=== PATIENT | male | born 1955 | race Caucasian/White ===

== ENCOUNTER 2025-06-27 13:55 | Inpatient (IN) | payer MEDICARE, MEDICAID ==
[~2025-06-27] VITALS: Ht 182.9 cm; Wt 74.6 kg
[~2025-06-27 13:55] MED LIST: AML5T PO; CLON0.1T PO; GEM600T PO; LOS50T PO; METO-159 PO; NAPR-746 PO; NOR10T PO; POT20T PO; QUET100T47 PO; SERT-160 PO
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
--- NOTE | 2025-06-27 15:12 | ECG ---
[facility] Test Date: 2025-06-27 Test Time: 15:10:46 Pat Name: CHRIS LOPEZ Department: Room: 0278T Gender: M Retail Support Manager: GP : 1955 Requested By: HANSEL GARNER Order Number: [id number] Reading MD: [address] Measurements Intervals [place] Rate: 64 P: 37 OK: 201 QRS: 39 QRSD: 97 T: 33 QT: 400 QTc: 413 Interpretive Statements Sinus rhythm Low voltage, precordial leads Consider anterior infarct Minimal ST elevation, inferior leads Baseline wander in lead(s) I Electronically Signed On 07-02-2025 20:27:[address] Please click the below link to view image of tracing.
[2025-06-27 15:15] LABS: Hematocrit 36.2 % (41.0-53.0); Hemoglobin 12.6 g/dL (13.5-17.5); Mean Corpuscular Hemoglobin 30.6 pg (28.0-32.0); Mean Corpuscular Volume 87.7 fL (80.0-100.0); Nucleated Red Blood Cells % 0.0 %
[2025-06-27 15:19] LABS: Chloride 104 mmol/L (98-107); Potassium 4.3 mmol/L (3.5-5.1); Sodium 137 mmol/L (136-145)
[2025-06-27 15:20] LABS: Anion Gap 10 (5-15); Carbon Dioxide 23 mmol/L (20-31)
[2025-06-27 15:21] LABS: Calcium 8.9 mg/dL (8.7-10.4)
[2025-06-27 15:25] LABS: BUN/Creatinine Ratio 12.7 (10.0-20.0); Blood Urea Nitrogen 17 mg/dL (9-23); Glucose 105 mg/dL (74-106)
--- NOTE | 2025-06-27 15:56 | DVH ---
XY CHEST TWO VIEWS ROUTINE CLINICAL HISTORY: CP COMPARISON: None TECHNIQUE: Frontal and lateral view of the chest was obtained FINDINGS: Lines and Tubes: None Lungs: No focal consolidation. Pleura: No effusion. No pneumothorax. Cardiomediastinal contours: Unremarkable Bones: No acute osseous abnormality. IMPRESSION: 1. No acute cardiopulmonary disease.
[2025-06-27 19:30] LABS: Urine Protein, UAD Negative (Negative)
[2025-06-27] MEDS ORDERED: DEXTROSE (50%) 50ML SYRG IV PRN (19:30)
[2025-06-27] MEDS ORDERED: NITROGLYCERIN 0.4 MG SL TAB SL PRN (19:30)
[2025-06-27] MEDS ORDERED: MORPHINE SULFATE 4 MG/ML SYR/VIAL IV PRN (19:30)
[2025-06-27 19:51] LABS: Barbiturate Scree,Urine Neg (NEGATIVE); Cannabinoid Screen, Urine Pos (NEGATIVE); Opiate Scree,Urine Neg (NEGATIVE)
[2025-06-27 19:52] LABS: Amphetamine Screen, Urine Neg (NEGATIVE); Benzodiazephine Screen, Urine Neg (NEGATIVE); Cocaine Screen, Urine Neg (NEGATIVE); Phencyclidine Screen, Urine Neg (NEGATIVE)
--- NOTE | 2025-06-27 20:47 | ECG ---
[facility] Test Date: 2025-06-27 Test Time: 17:15:35 Pat Name: CHRIS LOPEZ Department: Room: 0278T Gender: M Tester Operator: : 1955 Requested By: HANSEL GARNER Order Number: [id number] Reading MD: [address] Measurements Intervals [place] Rate: 62 P: 41 NV: 199 QRS: 109 QRSD: 109 T: 30 QT: 416 QTc: 423 Interpretive Statements Sinus rhythm Right axis deviation Low voltage, precordial leads Consider anterior infarct Electronically Signed On 07-02-2025 20:27:[address] Please click the below link to view image of tracing.
--- NOTE | 2025-06-27 21:31 | DVHHP2 ---
History of Present Illness Reason for Visit: Chest pain History of Present Illness 70-year-old male presents for evaluation of chest pain. Patient reports a one day history of left-sided sharp nonradiating chest pain with associated shortness for breath. No nausea or vomiting. No other acute complaints reported. Past Medical History AFib, CHF, dementia, diabetes mellitus, hypertension, mi Past Surgical History Cholecystectomy, appendectomy, Family History Diabetes mellitus and hypertension Smoke: <1 pack per day ALCOHOL: occassional Drugs: Marijuana Lives: with Family Review of Systems Review of Systems Review of systems are currently negative otherwise addressed in HPI. Allergies: Coded Allergies: Cocaine (Verified Allergy, Unknown, 06/27/25) Lisinopril (Verified Allergy, Unknown, 06/27/25) Penicillins (Verified Allergy, Unknown, 06/27/25) Medications Current Medications Medications Dose Ordered Sig/Romario Route Start Time Stop Time Status Last Admin Dose Admin Aspirin 81 mg DAILY PO 06/28/25 10:00 Atorvastatin Calcium 10 mg HS PO 06/27/25 22:00 Donepezil HCl 5 mg HS PO 06/27/25 22:00 Memantine 10 mg DAILY PO 06/28/25 10:00 Tamsulosin HCl 0.4 mg QPM PO 06/28/25 18:00 Losartan Potassium 50 mg DAILY PO 06/28/25 10:00 Metoprolol Succinate 25 mg DAILY PO 06/28/25 10:00 Diagnostic Test (Pha) 1 strip ACHS 06/27/25 22:00 Insulin Human Regular ACHS SC 06/27/25 22:00 Dextrose 50 ml UD PRN IV 06/27/25 19:30 Ondansetron HCl 4 mg Q4HP PRN IV 06/27/25 19:30 Enoxaparin Sodium 40 mg DAILY SC 06/28/25 10:00 Acetaminophen 650 mg Q6HP PRN PO 06/27/25 19:30 Nitroglycerin 0.4 mg Q5MINP PRN SL 06/27/25 19:30 Morphine Sulfate 2 mg Q30M PRN IV 06/27/25 19:30 Exam Vital Signs Vital Signs Date Time Temp Pulse Resp B/P (MAP) Pulse Ox O2 Delivery O2 Flow Rate FiO2 06/27/25 19:24 71 20 97 Room Air 06/27/25 19:24 98.1 154/77 (102) 98.1 06/27/25 16:35 0 21 Exam Gen: 70-year-old male in mild distress Skin: Warm, dry, normal color and texture, no rash. HEENT: Normocephalic atraumatic, mucous membranes moist and pink. Neck: Cervical and supraclavicular nodes normal without enlargement, trachea is midline, thyroid gland is normal without masses. Pulmonary: Clear to auscultation and percussion bilaterally. Cardiac: Regular rate and rhythm. No murmur Abdomen: Soft, nontender, nondistended, bowel sounds present all 4 quadrants, no guarding, no rigidity, no organomegaly. Extremities: No cyanosis, clubbing, no edema Neuro: Cranial nerves II through XII grossly intact, normal affect and speech, no focal motor deficits. Labs/Xrays ORDERING PHYSICIAN: HANSEL GARNER MD PROCEDURE(s): CXR2 - CHEST TWO VIEWS ROUTINE REASON: CP ORDER NUMBER(s): [id number], ACCESSION NUMBER(s): [id number] XY CHEST TWO VIEWS ROUTINE CLINICAL HISTORY: CP COMPARISON: None TECHNIQUE: Frontal and lateral view of the chest was obtained FINDINGS: Lines and Tubes: None Lungs: No focal consolidation. Pleura: No effusion. No pneumothorax. Cardiomediastinal contours: Unremarkable Bones: No acute osseous abnormality. IMPRESSION: 1. No acute cardiopulmonary disease. Labs Test 06/27/25 17:35 06/27/25 15:04 06/27/25 14:12 Range/Units Urine Color Colorless Yellow Urine Clarity Clear Clear Urine pH 6.0 5.0-9.0 Urine Specific [place] 1.009 1.001-1.035 Urine Protein Negative Negative Urine Ketones Negative Negative Urine Blood Negative Negative /uL Urine Nitrite Negative Negative Urine Bilirubin Negative Negative Urine Urobilinogen Normal Negative mg/dL Urine Leukocyte Esterase Negative Negative /uL Urine RBC None seen 0 - 3 /hpf Urine Microscopic WBC < 1 0-3 /HPF Urine Squamous Epithelial Cells None seen <5 /hpf Urine Bacteria None seen None Seen /hpf Urine Glucose Normal Normal mg/dL Urine Opiates Screen Neg NEGATIVE Urine Fentanyl Screen Neg NEGATIVE Urine Barbiturates Screen Neg NEGATIVE Urine Phencyclidine Screen Neg NEGATIVE Urine Amphetamines Screen Neg NEGATIVE Urine Benzodiazepines Screen Neg NEGATIVE Urine Cocaine Screen Neg NEGATIVE Urine Cannabinoids Screen Pos NEGATIVE Sodium Level 137 136-145 mmol/L Potassium Level 4.3 3.5-5.1 mmol/L Chloride Level 104 98-107 mmol/L Carbon Dioxide Level 23 20-31 mmol/L Anion Gap 10 5-15 Blood Urea Nitrogen 17 9-23 mg/dL Creatinine 1.34 H 0.700-1.30 mg/dL Glomerular Filtration Rate Calc 57 >90 mL/min BUN/Creatinine Ratio 12.7 10.0-20.0 Serum Glucose 105 74-106 mg/dL Calcium Level 8.9 8.7-10.4 mg/dL Troponin I High Sensitivity 6 </=54 ng/L Plasma/Serum Blood Alcohol < 3.0 <10 mg/dL White Blood Count 10.3 4.4-10.8 10^3/uL Red Blood Count 4.13 L 4.5-5.90 10^6/uL Hemoglobin 12.6 L 13.5-17.5 g/dL Hematocrit 36.2 L 41.0-53.0 % Mean Corpuscular Volume 87.7 80.0-100.0 fL Mean Corpuscular Hemoglobin 30.6 28.0-32.0 pg Mean Corpuscular Hemoglobin Concent 34.9 32.0-36.0 g/dL Red Cell Distribution Width 14.0 11.8-14.3 % Platelet Count 282 140-450 10^3/uL Mean Platelet Volume 8.8 6.9-10.8 fL Neutrophils (%) (Auto) 72.1 37.0-80.0 % Lymphocytes (%) (Auto) 15.7 10.0-50.0 % Monocytes (%) (Auto) 9.0 0.0-12.0 % Eosinophils (%) (Auto) 2.5 0.0-7.0 % Basophils (%) (Auto) 0.7 0.0-2.0 % Neutrophils # (Auto) 7.4 1.6-8.6 10 ^3/uL Lymphocytes # (Auto) 1.6 0.4-5.4 10 ^3/uL Monocytes # (Auto) 0.9 0-1.3 10 ^3/uL Eosinophils # (Auto) 0.3 0-0.8 10 ^3/uL Basophils # (Auto) 0.1 0-0.2 10 ^3/uL Nucleated Red Blood Cells 0.0 % SEPSIS Sepsis Screen Date sepsis recognized/suspect: Jun 27, 2025 Time Sepsis recognized/suspect: 1925 Recent Procedure: No On Antibiotic Therapy: No Respiratory Rate >20: No Heart Rate >90: No Temp<36 C (96.8 F) or >38.3 C: No SBP <90 or MAP <65 mmHG: No New Acute Mental Status Change: No Is the patient on CPAP, BIPAP,: No Physician Orders Electrocardigram (06/27/25 17:13) Heplock Iv (06/27/25 14:51) Assistant To The President (06/27/25 14:51) Blood Pressure (06/27/25 14:51) Pulse Oximetry (06/27/25 14:51) Chest Two Views Routine (06/27/25 14:51) Aspirin Tablet (06/28/25 10:00) Atorvastatin (Lipitor) (06/27/25 22:00) Donepezil Tablet (Aricept Tablet) (06/27/25 22:00) Memantine Tablet (Namenda Tablet) (06/28/25 10:00) Tamsulosin Hydrochloride (Flomax) (06/28/25 18:00) Losartan Tablet (Cozaar Tablet) (06/28/25 10:00) Metoprolol Xl Succinate (Toprol Xl) (06/28/25 10:00) Basic Metabolic Panel (06/28/25 04:00) Glucose Blood (Accu-Chek Comfort Curve T (06/27/25 22:00) Insulin R (Human) (Insulin R) (06/27/25 22:00) Dextrose 50% Syringe (06/27/25 19:30) Admit (06/27/25 19:30) Ondansetron Hcl (Zofran) (06/27/25 19:30) Enoxaparin Sodium (Lovenox) (06/28/25 10:00) Cardiac Diet-2gna,Lofat,Lochol (06/28/25 Breakfast) Echo 2d Mode Cardiac Dop (06/27/25 19:30) Condition: Fair (06/27/25 19:30) Acetaminophen Tablet (Tylenol Tablet) (06/27/25 19:30) Bedrest With Bathroom Privileg (06/27/25 19:30) Nitroglycerin Sublingual (Ntrostat Subli (06/27/25 19:30) Stat Ekg For Chest Pain (06/27/25 19:30) Notify Md Of Changes From Base (06/27/25 19:30) Network Coordinator For 24 Hours (06/27/25 19:30) Emergency Dysrhythmia Protocol (06/27/25 19:30) Rhythm Strips Once Every Shift (06/27/25 19:30) Oxygen By Nasal Cannula (06/27/25 19:30) Morphine Sulfate Injection (06/27/25 19:30) Thyroid Stimulating Hormone (06/27/25 21:01) Lipid Panel (06/27/25 21:01) Vital Signs Date Time Temp Pulse Resp B/P (MAP) Pulse Ox O2 Delivery O2 Flow Rate FiO2 06/27/25 19:24 71 20 97 Room Air 06/27/25 19:24 98.1 71 20 154/77 (102) 97 98.1 06/27/25 17:15 62 06/27/25 16:35 Room Air* 0 21 06/27/25 16:23 72 06/27/25 15:10 64 06/27/25 14:02 72 06/27/25 13:59 98.0 84 16 155/80 98 98.0 Laboratory Tests Test 06/27/25 14:12 White Blood Count 10.3 10^3/uL (4.4-10.8) Medications Medications Dose Ordered Sig/Romario Route Start Time Stop Time Status Last Admin Dose Admin Aspirin 162 mg ONCE ONCE PO 06/27/25 15:00 06/27/25 15:01 DC 06/27/25 15:09 162 MG Assessment/Plan Assessment/Plan Assessment Unstable angina Diabetes mellitus History of [place] Dementia Plan Admit the patient to telemetry to the hospitalist ACS protocol Resume home medications Continue treatment per orders. Plan discussed with: Patient My Orders Orders - ROSA MARIA BOWEN Procedure Category Date Status Time Aspirin Tablet PHA 06/28/25 In Process 10:00 Atorvastatin (Lipitor) PHA 06/27/25 In Process 22:00 Donepezil Tablet PHA 06/27/25 In Process (Aricept Tablet) 22:00 Memantine Tablet PHA 06/28/25 In Process (Namenda Tablet) 10:00 Tamsulosin PHA 06/28/25 In Process Hydrochloride (Flomax) 18:00 Losartan Tablet PHA 06/28/25 In Process (Cozaar Tablet) 10:00 Metoprolol Xl PHA 06/28/25 In Process Succinate (Toprol Xl) 10:00 Basic Metabolic Panel LAB 06/28/25 Verified 04:00 Glucose Blood PHA 06/27/25 In Process (Accu-Chek Comfort 22:00 Insulin R (Human) PHA 06/27/25 In Process (Insulin R) 22:00 Dextrose 50% Syringe PHA 06/27/25 In Process 19:30 Admit ADMIT 06/27/25 Transmitted 19:30 Ondansetron Hcl PHA 06/27/25 In Process (Zofran) 19:30 Enoxaparin Sodium PHA 06/28/25 In Process (Lovenox) 10:00 Cardiac DIET 06/28/25 Transmitted Diet-2gna,Lofat,Lochol Breakfast Echo 2d Mode Cardiac US 06/27/25 Logged DOP 19:30 Condition: Fair MARYCRUZ 06/27/25 In Process 19:30 Acetaminophen Tablet PHA 06/27/25 In Process (Tylenol Tablet) 19:30 Bedrest With Bathroom MARYCRUZ 06/27/25 In Process Privileg 19:30 Nitroglycerin PHA 06/27/25 In Process Sublingual (Ntrostat 19:30 Stat Ekg For Chest MARYCRUZ 06/27/25 In Process Pain 19:30 Notify Of Changes MARYCRUZ 06/27/25 In Process From Base 19:30 Network Coordinator For MARYCRUZ 06/27/25 In Process 24 Hours 19:30 Emergency Dysrhythmia MARYCRUZ 06/27/25 In Process Protocol 19:30 Rhythm Strips Once MARYCRUZ 06/27/25 In Process Every Shift 19:30 Oxygen By Nasal RT 06/27/25 Transmitted Cannula 19:30 Morphine Sulfate PHA 06/27/25 In Process Injection 19:30 Thyroid Stimulating LAB 06/27/25 In Process Hormone 21:01 Lipid Panel LAB 06/27/25 In Process 21:01 Date of Service: Jun 27, 2025 Billing Provider: ROSA MARIA BOWEN Common Visit Codes: [id number] INP/OBS CARE (HIGH) ROSA MARIA BOWEN Jun 27, 2025 21:31
[2025-06-27 21:50] LABS: HDL Cholesterol 50 mg/dL (40-59)
[2025-06-27 21:52] LABS: Cholesterol 205 mg/dL (< 200); Triglycerides 500 mg/dL (< 150)
[2025-06-27] MEDS: ACCU-CHEK COMFORT CURVE STRIP VI SCH (22:34)
[2025-06-27] MEDS: ATORVASTATIN 20 MG TAB PO SCH (22:34)
[2025-06-27] MEDS: DONEPEZIL HYDROCHLORIDE 5 MG TAB PO SCH (22:34)
[2025-06-27] MEDS: hydrALAZINE HCL 20 MG/ML VL IV ONE (22:35)
[2025-06-27] MEDS: InsuLIN REG 1unit/0.01ml Soln (100units/ml) SC SCH (22:48)
[2025-06-27 23:12] VITALS: BP 153/86; PULSE 70; RESP 18; TEMP 97.9; O2SAT 98
[2025-06-27] MEDS: ONDANSETRON HCL 4 MG/2 ML VIAL IV PRN (23:50)
[2025-06-27] MEDS: ACETAMINOPHEN 325 MG TAB PO PRN (23:50)
[2025-06-28] VITALS (8 sets, daily range): BP systolic 140–172; BP diastolic 81–92; PULSE 58–71; RESP 16–19; TEMP 97.5–98.3; O2SAT 97–99
[2025-06-28 08:42] LABS: Chloride 104 mmol/L (98-107); Potassium 4.4 mmol/L (3.5-5.1)
[2025-06-28 08:43] LABS: Anion Gap 8 (5-15); Carbon Dioxide 24 mmol/L (20-31)
[2025-06-28 08:44] LABS: Calcium 9.2 mg/dL (8.7-10.4)
[2025-06-28 08:45] LABS: Sodium 136 mmol/L (136-145)
[2025-06-28 08:48] LABS: BUN/Creatinine Ratio 16.3 (10.0-20.0); Blood Urea Nitrogen 20 mg/dL (9-23)
[2025-06-28 08:49] LABS: Glucose 144 mg/dL (74-106)
[2025-06-28] MEDS: ENOXAPARIN SOD 40 MG/0.4 ML SYRINGE SC SCH (10:12)
[2025-06-28] MEDS: METOPROLOL SUCCINATE XL 50 MG TAB PO SCH (10:13)
[2025-06-28] MEDS: MEMANTINE HCL 5 MG TAB PO SCH (10:13)
[2025-06-28] MEDS: LOSARTAN POTASSIUM 50 MG TAB PO SCH (10:13)
--- NOTE | 2025-06-28 11:27 | DVHPN2 ---
Subjective Continues to have intermittent substernal chest pain Reviewed: Care Plan, H&P, Labs Changes from previous H/P or p: No Changes General: Per HPI Cardiovascular: Chest Pain Objective Vitals Vital Signs Date Time Temp Pulse Resp B/P (MAP) Pulse Ox O2 Delivery O2 Flow Rate FiO2 06/28/25 10:13 68 160/88 06/28/25 05:00 98.2 16 98 98.2 06/27/25 23:12 Room Air* 0 21 Intake/Output Intake and Output 06/28/25 07:00 Intake Total 300 ml Balance 300 ml Intake Oral 300 ml # Voids 2 General Appearance: Alert, Oriented X3, Cooperative, No acute distress, mild distress HEENT: Atraumatic, PERRLA Lungs: Clear to auscultation, Normal air movement Cardiovascular: Normal S1, Normal S2 Abdomen: Normal bowel sounds, Soft, No tenderness, No hepatospenomegaly, No masses Genitourinary: No Apparent Abnormalities Musculoskeletal: Normal sensory function, Normal motor function Neuro: Normal gait, Normal speech Skin: Dry, Intact Psych/Mental Status: Mental status NL, Mood NL Medications Current Medications Medications Dose Ordered Sig/Romario Route Start Time Stop Time Status Last Admin Dose Admin Aspirin 81 mg DAILY PO 06/28/25 10:00 06/28/25 10:12 81 MG Atorvastatin Calcium 10 mg HS PO 06/27/25 22:00 06/27/25 22:34 10 MG Donepezil HCl 5 mg HS PO 06/27/25 22:00 06/27/25 22:34 5 MG Memantine 10 mg DAILY PO 06/28/25 10:00 06/28/25 10:13 10 MG Tamsulosin HCl 0.4 mg QPM PO 06/28/25 18:00 Losartan Potassium 50 mg DAILY PO 06/28/25 10:00 06/28/25 10:13 50 MG Metoprolol Succinate 25 mg DAILY PO 06/28/25 10:00 06/28/25 10:13 25 MG Diagnostic Test (Pha) 1 strip ACHS 06/27/25 22:00 06/28/25 06:13 1 STRIP Insulin Human Regular ACHS SC 06/27/25 22:00 Dextrose 50 ml UD PRN IV 06/27/25 19:30 Ondansetron HCl 4 mg Q4HP PRN IV 06/27/25 19:30 06/27/25 23:50 4 MG Enoxaparin Sodium 40 mg DAILY SC 06/28/25 10:00 06/28/25 10:12 40 MG Acetaminophen 650 mg Q6HP PRN PO 06/27/25 19:30 06/27/25 23:50 650 MG Nitroglycerin 0.4 mg Q5MINP PRN SL 06/27/25 19:30 Morphine Sulfate 2 mg Q30M PRN IV 06/27/25 19:30 Laboratory Results Laboratory Tests 06/27/25 14:12 06/28/25 08:10 Chemistry Test 06/27/25 15:04 06/28/25 08:10 Calcium Level 8.9 mg/dL (8.7-10.4) 9.2 mg/dL (8.7-10.4) Lipid panel Test 06/27/25 15:04 Cholesterol Level 205 mg/dL (< 200) H HDL Cholesterol 50 mg/dL (40-59) Triglycerides Level 500 mg/dL (< 150) H HgA1c, TSH Test 06/27/25 15:04 Thyroid Stimulating Hormone (TSH) 1.63 uIU/mL (0.55-4.78) Urinalysis Test 06/27/25 17:35 Urine Color Colorless (Yellow) Urine Clarity Clear (Clear) Urine pH 6.0 (5.0-9.0) Urine Specific [place] 1.009 (1.001-1.035) Urine Protein Negative (Negative) Urine Ketones Negative (Negative) Urine Blood Negative /uL (Negative) Urine Nitrite Negative (Negative) Urine Bilirubin Negative (Negative) Urine Urobilinogen Normal mg/dL (Negative) Urine Leukocyte Esterase Negative /uL (Negative) Urine RBC None seen /hpf (0 - 3) Urine Microscopic WBC < 1 /HPF (0-3) Urine Squamous Epithelial Cells None seen /hpf (<5) Urine Bacteria None seen /hpf (None Seen) Urine Glucose Normal mg/dL (Normal) Labs and/or images reviewed: Labs reviewed by me, Image(s) reviewed by me Assessment/Plan Assessment/Plan Impression: -acute coronary syndrome -dyslipidemia -diabetes mellitus -primary hypertension Plan: -heart score: 5 cardiology consultation will be placed -regular insulin sliding scale -high-dose statin -echocardiogram pending -check TSH, A1c -ACS protocol -repeat EKG, labs in a.m. Total time spent with patient discussing and formulating plan of care: 35 minutes. This medical document was created using an electronic medical record system with [employer] dictation system. Although this document has been carefully reviewed, there may still be some phonetic and typographical errors. These areas are purely typographical due to imperfections of the software programs, and do not reflect any compromise in the patient's medical care. Plan discussed with: Patient, Other (RN) My Orders Orders - CLAUDETTE MILES NP Procedure Category Date Status Time Electrocardigram EKG 06/28/25 Logged 11:19 Hemoglobin A1c LAB 06/28/25 Logged 11:19 * Cardiology Consult CONS 06/28/25 Transmitted 11:19 Pantoprazole Tablet PHA 06/29/25 Logged (Protonix Tablet) 06:00 Date of Service: Jun 28, 2025 Billing Provider: CLAUDETTE MILES NP Common Visit Codes: [id number] INP/OBS CARE(HIGH) CLAUDETTE MILES NP Jun 28, 2025 11:27
--- NOTE | 2025-06-28 12:10 | ECG ---
[facility] Test Date: 2025-06-27 Test Time: 14:02:27 Pat Name: CHRIS LOPEZ Department: Room: 0278T Gender: M Behavioral Pediatrician: GP : 1955 Requested By: HANSEL GARNER Order Number: [id number] Reading MD: [address] Street Measurements Intervals [place] Rate: 72 P: 36 MI: 195 QRS: -29 QRSD: 97 T: 25 QT: 383 QTc: 420 Interpretive Statements Sinus rhythm S1,S2,S3 pattern Low voltage, precordial leads Consider anterior infarct Baseline wander in lead(s) II,III,aVF,V2 Electronically Signed On 07-02-2025 20:26:[address] Please click the below link to view image of tracing.
--- NOTE | 2025-06-28 14:27 | DVHINCON2 ---
Date Seen: Jun 28, 2025 Referring Physician TONO Miller Reason for Consultation ACS History of Present Illness This is a 70-year-old male patient who presents to the emergency room with chief complaint of chest pain. The patient reports that the chest pain began on day of emergency room arrival. He describes it as unprovoked, constant, pressure- like in nature, substernal and nonradiating. He reports smoking marijuana which helped alleviate symptoms. He decided to come to the emergency room for further evaluation. He denies any chest pain while at this facility. Initial twelve lead electrocardiogram reveals normal sinus rhythm with nonspecific ST segment changes to inferior leads (with noted baseline wander). Initial troponin level of 6ng/L with flat trend thereafter. Significant past medical history includes myocardial infarction, hypertension, dyslipidemia, type 2 diabetes mellitus, and dementia. The patient reports that he was told he had a myocardial infarction in 2014 where he underwent a coronary angiogram without any catheter based intervention. He states he has not followed up with a locker attendant for three years. The patient also states that he has been under lot of stress given recently being evicted from a [facility]ci in [place]. He comes to this area with his son who is trying to help him get into a [facility] facility. Past Medical History Past medical history reviewed. No other significant than mentioned above. Past Surgical History Cholecystectomy Appendectomy Tonsillectomy Family History: Diabetes mellitus G8 MOTHER FH: dementia G8 MOTHER Hypertension G8 MOTHER G8 FATHER Family History Family history reviewed. Social History Admits to occasional marijuana use , denies other illicit drugs Denies tobacco use or alcohol use Allergies: Coded Allergies: Cocaine (Verified Allergy, Unknown, 06/27/25) Lisinopril (Verified Allergy, Unknown, 06/27/25) Penicillins (Verified Allergy, Unknown, 06/27/25) Home Meds Reported Medications Clonidine Hydrochloride (Clonidine Hcl) 0.1 Mg Tab, 0.1 MG PO BID 06/21/13 Losartan Potassium (COZAAR TABLET) 50 Mg Tb, 50 MG PO BID 06/21/13 Metoprolol Tartrate (Metoprolol Tartrate) 100 Mg Tab, 100 MG PO DAILY 06/21/13 Amlodipine Besylate (NORVASC TABLET) 5 Mg Tb, 10 MG PO DAILY 06/21/13 Naproxen (Naproxen) 500 Mg Tab, 500 MG PO BID 06/21/13 Gemfibrozil (LOPID TABLET) 600 Mg Tb, 600 MG PO BID 06/21/13 Quetiapine Fumerate (QUETIAPINE FUMARATE) 100 Mg Tab, 100 MG PO HS 06/21/13 Sertraline Hcl (Sertraline Hcl) 100 Mg Tab, 200 MG PO HS 06/21/13 Home Meds Home medications reviewed. Current Medications Current Medications Medications (Trade) Dose Ordered Sig/Romario Route PRN Reason Start Time Stop Time Status Last Admin Aspirin 81 mg DAILY PO 06/28/25 10:00 06/28/25 10:12 Atorvastatin Calcium (Lipitor) 10 mg HS PO 06/27/25 22:00 06/27/25 22:34 Donepezil HCl (Aricept Tablet) 5 mg HS PO 06/27/25 22:00 06/27/25 22:34 Memantine (Namenda Tablet) 10 mg DAILY PO 06/28/25 10:00 06/28/25 10:13 Tamsulosin HCl (Flomax) 0.4 mg QPM PO 06/28/25 18:00 Losartan Potassium (Cozaar Tablet) 50 mg DAILY PO 06/28/25 10:00 06/28/25 10:13 Metoprolol Succinate (Toprol Xl) 25 mg DAILY PO 06/28/25 10:00 06/28/25 10:13 Diagnostic Test (Pha) (Accu-Chek Comfort Curve T) 1 strip ACHS 06/27/25 22:00 06/28/25 06:13 Insulin Human Regular (InsuLIN R) ACHS SC 06/27/25 22:00 Dextrose 50 ml UD PRN IV Blood Sugar LESS THAN 60 06/27/25 19:30 Ondansetron HCl (Zofran) 4 mg Q4HP PRN IV NAUSEA / VOMITING 06/27/25 19:30 06/27/25 23:50 Enoxaparin Sodium (Lovenox) 40 mg DAILY SC 06/28/25 10:00 06/28/25 10:12 Acetaminophen (Tylenol Tablet) 650 mg Q6HP PRN PO PAIN SCALE 1-3 OR TEMP>100.4 06/27/25 19:30 06/27/25 23:50 Nitroglycerin (Ntrostat Sublingual) 0.4 mg Q5MINP PRN SL FOR CHEST PAIN 06/27/25 19:30 Morphine Sulfate 2 mg Q30M PRN IV FOR CHEST PAIN 06/27/25 19:30 Pantoprazole Sodium (Protonix Tablet) 40 mg DAILY@0600 PO 06/29/25 06:00 Review of Systems Constitutional: No symptom reported Ears, Nose, & Throat: No symptom reported Eyes: No symptom reported Neurological: No symptoms reported Pulmonary/Respiratory: No symptoms reported Cardiovascular: Chest pain Gastrointestinal: No symptom reported Genitourinary: No symptom reported Musculoskeletal: No symptom reported Skin: No symptom reported Psychiatric: No symptom reported Endocrine: No symptom reported Hematologic/Lymphatic: No symptom reported Vital Signs Vital Signs Date Time Temp Pulse Resp B/P (MAP) Pulse Ox O2 Delivery O2 Flow Rate FiO2 06/28/25 10:13 68 160/88 06/28/25 05:00 98.2 16 98 98.2 06/27/25 23:12 Room Air* 0 21 Physical Exam General Appearance: Cooperative. Well-developed. Well-nourished. No acute distress. Pulmonary/Respiratory: Clear, bilateral breaths sounds. Cardiovascular/Chest: Regular rate and rhythm. Peripheral Pulses: 2+ Radial (R). 2+ Radial (L). 2+ Pedal (R). 2+ Pedal (L) Abdominal Exam: Normal bowel sounds. Ankle Exam: Negative ankle edema Lower extremities: Negative lower extremity edema Neuro/Mental Status: A/OX4, coherent. Thoughts/Psych: Normal thought pattern. Appropriate mood and affect. Good j udgment and insight. Appearance: No acute distress. Skin Exam: Normal inspection. Normal color. Warm and dry. Labs/Diagnostic Data Labs Test 06/28/25 12:18 06/28/25 08:10 06/27/25 17:35 06/27/25 15:04 Range/Units POC Glucose 111 H 70-106 mg/dl Sodium Level 136 136-145 mmol/L Potassium Level 4.4 3.5-5.1 mmol/L Chloride Level 104 98-107 mmol/L Carbon Dioxide Level 24 20-31 mmol/L Anion Gap 8 5-15 Blood Urea Nitrogen 20 9-23 mg/dL Creatinine 1.23 0.700-1.30 mg/dL Glomerular Filtration Rate Calc 63 >90 mL/min BUN/Creatinine Ratio 16.3 10.0-20.0 Serum Glucose 144 H 74-106 mg/dL Hemoglobin A1c 6.3 H <5.7 % A1C Calcium Level 9.2 8.7-10.4 mg/dL Urine Color Colorless Yellow Urine Clarity Clear Clear Urine pH 6.0 5.0-9.0 Urine Specific [place] 1.009 1.001-1.035 Urine Protein Negative Negative Urine Ketones Negative Negative Urine Blood Negative Negative /uL Urine Nitrite Negative Negative Urine Bilirubin Negative Negative Urine Urobilinogen Normal Negative mg/dL Urine Leukocyte Esterase Negative Negative /uL Urine RBC None seen 0 - 3 /hpf Urine Microscopic WBC < 1 0-3 /HPF Urine Squamous Epithelial Cells None seen <5 /hpf Urine Bacteria None seen None Seen /hpf Urine Glucose Normal Normal mg/dL Urine Opiates Screen Neg NEGATIVE Urine Fentanyl Screen Neg NEGATIVE Urine Barbiturates Screen Neg NEGATIVE Urine Phencyclidine Screen Neg NEGATIVE Urine Amphetamines Screen Neg NEGATIVE Urine Benzodiazepines Screen Neg NEGATIVE Urine Cocaine Screen Neg NEGATIVE Urine Cannabinoids Screen Pos NEGATIVE Troponin I High Sensitivity 6 </=54 ng/L Triglycerides Level 500 H < 150 mg/dL Cholesterol Level 205 H < 200 mg/dL LDL Cholesterol < 100 mg/dL HDL Cholesterol 50 40-59 mg/dL Thyroid Stimulating Hormone (TSH) 1.63 0.55-4.78 uIU/mL Plasma/Serum Blood Alcohol < 3.0 <10 mg/dL Test 06/27/25 14:12 Range/Units White Blood Count 10.3 4.4-10.8 10^3/uL Red Blood Count 4.13 L 4.5-5.90 10^6/uL Hemoglobin 12.6 L 13.5-17.5 g/dL Hematocrit 36.2 L 41.0-53.0 % Mean Corpuscular Volume 87.7 80.0-100.0 fL Mean Corpuscular Hemoglobin 30.6 28.0-32.0 pg Mean Corpuscular Hemoglobin Concent 34.9 32.0-36.0 g/dL Red Cell Distribution Width 14.0 11.8-14.3 % Platelet Count 282 140-450 10^3/uL Mean Platelet Volume 8.8 6.9-10.8 fL Neutrophils (%) (Auto) 72.1 37.0-80.0 % Lymphocytes (%) (Auto) 15.7 10.0-50.0 % Monocytes (%) (Auto) 9.0 0.0-12.0 % Eosinophils (%) (Auto) 2.5 0.0-7.0 % Basophils (%) (Auto) 0.7 0.0-2.0 % Neutrophils # (Auto) 7.4 1.6-8.6 10 ^3/uL Lymphocytes # (Auto) 1.6 0.4-5.4 10 ^3/uL Monocytes # (Auto) 0.9 0-1.3 10 ^3/uL Eosinophils # (Auto) 0.3 0-0.8 10 ^3/uL Basophils # (Auto) 0.1 0-0.2 10 ^3/uL Nucleated Red Blood Cells 0.0 % Assessment Chest pain, rule out coronary ischemia Hypertensive urgency Rule out structural heart disease Dyslipidemia severe triglyceridemia Type 2 diabetes mellitus Marijuana use Dementia Plan/Recommendation We will continue with the following plan/recommendations (Dr. Dodd): * Transthoracic echocardiogram to evaluate cardiac function * Chest pain protocol * HEART score: 5 points (moderate score) * Aggressive BP control * Lipid-lowering agent. Increase atorvastatin dose, add Ezetimibe * Close cardiac surveillance * Nuclear stress test Case discussed with . Given the patient's clinical presentation, comorbidities, and elevated HEART score, we will recommend for the patient to undergo a nuclear stress test. Plan discussed with the patient who is agreeable. We will schedule the patient at soonest availability. Thank you for allowing us to care for this patient. Please call with any questions or concerns. Critical care time spent: 44 minutes This medical document was created using an electronic medical record system with voice recognition software and computerized dictation system. Although this document has been carefully reviewed, there might still be some phonetic and typographical errors. Occasional wrong-word or ``sound-alike substitutions may have occurred due to the inherent limitations of voice recognition software. These areas are purely typographical due to imperfections of the software programs and do not reflect any compromise in the patient's medical care. Please read the chart carefully and recognize, using context, where these substitutions have occurred. Plan discussed with: Patient NYHA Physical activity limitations: NA Date of Service: Jun 28, 2025 Billing Provider: SHANTEL PATEL Cardiology Common Codes: [id number] INP/OBS CARE (High) Cardiology Consultation Codes: [id number] CONSULT <45MIN SHANTEL PATEL Jun 28, 2025 14:27
[2025-06-28] MEDS: TAMSULOSIN HYDROCHLORIDE 0.4 MG CAP PO SCH (18:00)
[2025-06-28] MEDS: ATORVASTATIN 20 MG TAB PO SCH (21:58)
--- NOTE | 2025-06-28 23:32 | DVHINCON2 ---
Date Seen: Jun 28, 2025 Referring Physician TONO Miller Reason for Consultation ACS History of Present Illness This is a 70-year-old male with a PMH of myocardial infarction, hypertension, dyslipidemia, type 2 diabetes mellitus, and dementia who presents to the emergency room with a complaint of chest pain. The patient reports that the chest pain began on day of emergency room arrival. He describes it as unprovoked, constant, pressure-like in nature, substernal and nonradiating. He reports smoking marijuana which helped alleviate symptoms. He decided to come to the emergency room for further evaluation. He denies any chest pain while at this facility. Initial twelve lead electrocardiogram reveals normal sinus rhythm with nonspecific ST segment changes to inferior leads (with noted baseline wander). Initial troponin level of 6ng/L with flat trend thereafter. The patient reports that he was told he had a myocardial infarction in 2014 where he underwent a coronary angiogram without any catheter based intervention. He states he has not followed up with a polytechnic registrar for three years. The patient also states that he has been under lot of stress given recently being evicted from a alf in [place]. He comes to this area with his son who is trying to help him get into a correction facility. Patient was admitted to the hospital. I am asked to consult on this patient. Past Medical History Past medical history reviewed. No other significant than mentioned above. Past Surgical History Cholecystectomy Appendectomy Tonsillectomy Family History: Diabetes mellitus G8 MOTHER FH: dementia G8 MOTHER Hypertension G8 MOTHER G8 FATHER Allergies: Coded Allergies: Cocaine (Verified Allergy, Unknown, 06/27/25) Lisinopril (Verified Allergy, Unknown, 06/27/25) Penicillins (Verified Allergy, Unknown, 06/27/25) Home Meds Reported Medications Clonidine Hydrochloride (Clonidine Hcl) 0.1 Mg Tab, 0.1 MG PO BID 06/21/13 Losartan Potassium (COZAAR TABLET) 50 Mg Tb, 50 MG PO BID 06/21/13 Metoprolol Tartrate (Metoprolol Tartrate) 100 Mg Tab, 100 MG PO DAILY 06/21/13 Amlodipine Besylate (NORVASC TABLET) 5 Mg Tb, 10 MG PO DAILY 06/21/13 Naproxen (Naproxen) 500 Mg Tab, 500 MG PO BID 06/21/13 Gemfibrozil (LOPID TABLET) 600 Mg Tb, 600 MG PO BID 06/21/13 Quetiapine Fumerate (QUETIAPINE FUMARATE) 100 Mg Tab, 100 MG PO HS 06/21/13 Sertraline Hcl (Sertraline Hcl) 100 Mg Tab, 200 MG PO HS 06/21/13 Current Medications Current Medications Medications (Trade) Dose Ordered Sig/Romario Route PRN Reason Start Time Stop Time Status Last Admin Aspirin 81 mg DAILY PO 06/28/25 10:00 06/28/25 10:12 Memantine (Namenda Tablet) 10 mg DAILY PO 06/28/25 10:00 06/28/25 10:13 Tamsulosin HCl (Flomax) 0.4 mg QPM PO 06/28/25 18:00 Losartan Potassium (Cozaar Tablet) 50 mg DAILY PO 06/28/25 10:00 06/28/25 10:13 Metoprolol Succinate (Toprol Xl) 25 mg DAILY PO 06/28/25 10:00 06/28/25 10:13 Enoxaparin Sodium (Lovenox) 40 mg DAILY SC 06/28/25 10:00 06/28/25 10:12 Pantoprazole Sodium (Protonix Tablet) 40 mg DAILY@0600 PO 06/29/25 06:00 Atorvastatin Calcium (Lipitor) 80 mg HS PO 06/28/25 22:00 06/28/25 21:58 EZETIMIBE (Zetia) 10 mg DAILY PO 06/29/25 10:00 Review of Systems Constitutional: No symptom reported Ears, Nose, & Throat: No symptom reported Eyes: No symptom reported Neurological: No symptoms reported Pulmonary/Respiratory: No symptoms reported Cardiovascular: Chest pain Gastrointestinal: No symptom reported Genitourinary: No symptom reported Musculoskeletal: No symptom reported Skin: No symptom reported Psychiatric: No symptom reported Endocrine: No symptom reported Hematologic/Lymphatic: No symptom reported Vital Signs Vital Signs Date Time Temp Pulse Resp B/P (MAP) Pulse Ox O2 Delivery O2 Flow Rate FiO2 06/28/25 21:00 98.3 59 19 144/82 (102) 98 98.3 06/28/25 20:00 Room Air* 0 21 Physical Exam GENERAL: Alert and oriented x 3. No acute distress. EYES: PERRL, EOMI. Anicteric. HENT: Moist mucous membranes. LUNGS: Clear to auscultation bilaterally. CARDIOVASCULAR: Regular rate and rhythm. ABDOMEN: Soft, non-tender and non-distended. EXTREMITIES: No edema. NEUROLOGIC: No focal neurological deficits. SKIN: Warm, dry. Labs/Diagnostic Data Labs Test 06/28/25 21:32 06/28/25 08:10 06/27/25 17:35 06/27/25 15:04 Range/Units POC Glucose 167 H 70-106 mg/dl Sodium Level 136 136-145 mmol/L Potassium Level 4.4 3.5-5.1 mmol/L Chloride Level 104 98-107 mmol/L Carbon Dioxide Level 24 20-31 mmol/L Anion Gap 8 5-15 Blood Urea Nitrogen 20 9-23 mg/dL Creatinine 1.23 0.700-1.30 mg/dL Glomerular Filtration Rate Calc 63 >90 mL/min BUN/Creatinine Ratio 16.3 10.0-20.0 Serum Glucose 144 H 74-106 mg/dL Hemoglobin A1c 6.3 H <5.7 % A1C Calcium Level 9.2 8.7-10.4 mg/dL Urine Color Colorless Yellow Urine Clarity Clear Clear Urine pH 6.0 5.0-9.0 Urine Specific [place] 1.009 1.001-1.035 Urine Protein Negative Negative Urine Ketones Negative Negative Urine Blood Negative Negative /uL Urine Nitrite Negative Negative Urine Bilirubin Negative Negative Urine Urobilinogen Normal Negative mg/dL Urine Leukocyte Esterase Negative Negative /uL Urine RBC None seen 0 - 3 /hpf Urine Microscopic WBC < 1 0-3 /HPF Urine Squamous Epithelial Cells None seen <5 /hpf Urine Bacteria None seen None Seen /hpf Urine Glucose Normal Normal mg/dL Urine Opiates Screen Neg NEGATIVE Urine Fentanyl Screen Neg NEGATIVE Urine Barbiturates Screen Neg NEGATIVE Urine Phencyclidine Screen Neg NEGATIVE Urine Amphetamines Screen Neg NEGATIVE Urine Benzodiazepines Screen Neg NEGATIVE Urine Cocaine Screen Neg NEGATIVE Urine Cannabinoids Screen Pos NEGATIVE Troponin I High Sensitivity 6 </=54 ng/L Triglycerides Level 500 H < 150 mg/dL Cholesterol Level 205 H < 200 mg/dL LDL Cholesterol < 100 mg/dL HDL Cholesterol 50 40-59 mg/dL Thyroid Stimulating Hormone (TSH) 1.63 0.55-4.78 uIU/mL Plasma/Serum Blood Alcohol < 3.0 <10 mg/dL Test 06/27/25 14:12 Range/Units White Blood Count 10.3 4.4-10.8 10^3/uL Red Blood Count 4.13 L 4.5-5.90 10^6/uL Hemoglobin 12.6 L 13.5-17.5 g/dL Hematocrit 36.2 L 41.0-53.0 % Mean Corpuscular Volume 87.7 80.0-100.0 fL Mean Corpuscular Hemoglobin 30.6 28.0-32.0 pg Mean Corpuscular Hemoglobin Concent 34.9 32.0-36.0 g/dL Red Cell Distribution Width 14.0 11.8-14.3 % Platelet Count 282 140-450 10^3/uL Mean Platelet Volume 8.8 6.9-10.8 fL Neutrophils (%) (Auto) 72.1 37.0-80.0 % Lymphocytes (%) (Auto) 15.7 10.0-50.0 % Monocytes (%) (Auto) 9.0 0.0-12.0 % Eosinophils (%) (Auto) 2.5 0.0-7.0 % Basophils (%) (Auto) 0.7 0.0-2.0 % Neutrophils # (Auto) 7.4 1.6-8.6 10 ^3/uL Lymphocytes # (Auto) 1.6 0.4-5.4 10 ^3/uL Monocytes # (Auto) 0.9 0-1.3 10 ^3/uL Eosinophils # (Auto) 0.3 0-0.8 10 ^3/uL Basophils # (Auto) 0.1 0-0.2 10 ^3/uL Nucleated Red Blood Cells 0.0 % Microbiology Date/Time Source Procedure Growth Status 06/28/25 00:45 Nose MRSA Screen - Final Complete Assessment Chest pain, rule out coronary ischemia. Hypertensive urgency. Rule out structural heart disease. Dyslipidemia severe triglyceridemia. Type 2 diabetes mellitus. Marijuana use. Dementia. Plan/Recommendation I agree with your ongoing assessment and care of plan. Patient has been seen by Mariel Krause NP on my behalf. We have discussed the plan with the patient. Given the patient's clinical presentation, comorbidities, and elevated HEART score, we will recommend for the patient to undergo a nuclear stress test. Plan discussed with the patient who is agreeable. We will schedule the patient at soonest availability. Transthoracic echocardiogram to evaluate cardiac function. Chest pain protocol. HEART score: 5 points (moderate score). Aggressive BP control. Lipid-lowering agent. Increase atorvastatin dose, add Ezetimibe. Close cardiac surveillance. Nuclear stress test. Additional plan as per the hospital course. Plan discussed with: Patient NYHA Physical activity limitations: NA Date of Service: Jun 28, 2025 Billing Provider: JABIER STOCK MD Cardiology Common Codes: [id number] INP/OBS CARE (High) Cardiology Consultation Codes: [id number] CONSULT <45MIN JABIER STOCK MD Jun 28, 2025 23:32
[2025-06-29] VITALS (9 sets, daily range): BP systolic 121–149; BP diastolic 50–82; PULSE 57–70; RESP 16–19; TEMP 96.9–98.2; O2SAT 96–99
[2025-06-29] MEDS: PANTOPRAZOLE 40 MG TAB PO SCH (06:00)
[2025-06-29 06:26] LABS: Hematocrit 37.0 % (41.0-53.0); Hemoglobin 13.1 g/dL (13.5-17.5); Mean Corpuscular Hemoglobin 30.5 pg (28.0-32.0); Mean Corpuscular Volume 85.7 fL (80.0-100.0); Nucleated Red Blood Cells % 0.0 %
[2025-06-29 06:35] LABS: Anion Gap 11 (5-15); Calcium 9.3 mg/dL (8.7-10.4); Carbon Dioxide 22 mmol/L (20-31); Chloride 101 mmol/L (98-107); Potassium 4.3 mmol/L (3.5-5.1)
[2025-06-29 06:37] LABS: Sodium 134 mmol/L (136-145)
[2025-06-29 06:41] LABS: BUN/Creatinine Ratio 18.3 (10.0-20.0); Blood Urea Nitrogen 22 mg/dL (9-23)
[2025-06-29 06:42] LABS: Glucose 152 mg/dL (74-106)
[2025-06-29] MEDS ORDERED: QUET200T45 PO (09:40)
[2025-06-29] MEDS ORDERED: ESCI1TAB37 PO (09:40)
[2025-06-29] MEDS ORDERED: TRAZ-228 PO (09:40)
[2025-06-29] MEDS ORDERED: TAMS0.4C39 PO (09:40)
[2025-06-29] MEDS ORDERED: FIN5T PO (09:40)
--- NOTE | 2025-06-29 09:44 | DVHPN2 ---
Subjective Denies any chest pain. Reviewed: Care Plan, H&P, Labs Changes from previous H/P or p: No Changes General: Per HPI Cardiovascular: Chest Pain Objective Vitals Vital Signs Date Time Temp Pulse Resp B/P (MAP) Pulse Ox O2 Delivery O2 Flow Rate FiO2 06/29/25 04:55 98.0 67 19 135/61 (85) 96 98.0 06/28/25 20:00 Room Air* 0 21 Intake/Output Intake and Output 06/29/25 07:00 Intake Total 2200 ml Balance 2200 ml Intake Oral 2200 ml # Voids 6 # Bowel Movements 1 General Appearance: Alert, Oriented X3, Cooperative, No acute distress, mild distress HEENT: Atraumatic, PERRLA Lungs: Clear to auscultation, Normal air movement Cardiovascular: Normal S1, Normal S2 Abdomen: Normal bowel sounds, Soft, No tenderness, No hepatospenomegaly, No masses Genitourinary: No Apparent Abnormalities Musculoskeletal: Normal sensory function, Normal motor function Neuro: Normal gait, Normal speech Skin: Dry, Intact Psych/Mental Status: Mental status NL, Mood NL Medications Current Medications Medications Dose Ordered Sig/Romario Route Start Time Stop Time Status Last Admin Dose Admin Aspirin 81 mg DAILY PO 06/28/25 10:00 06/28/25 10:12 81 MG Donepezil HCl 5 mg HS PO 06/27/25 22:00 06/28/25 21:57 5 MG Memantine 10 mg DAILY PO 06/28/25 10:00 06/28/25 10:13 10 MG Tamsulosin HCl 0.4 mg QPM PO 06/28/25 18:00 Losartan Potassium 50 mg DAILY PO 06/28/25 10:00 06/28/25 10:13 50 MG Metoprolol Succinate 25 mg DAILY PO 06/28/25 10:00 06/28/25 10:13 25 MG Diagnostic Test (Pha) 1 strip ACHS 06/27/25 22:00 06/29/25 06:17 1 STRIP Insulin Human Regular ACHS SC 06/27/25 22:00 Dextrose 50 ml UD PRN IV 06/27/25 19:30 Ondansetron HCl 4 mg Q4HP PRN IV 06/27/25 19:30 06/29/25 06:30 4 MG Enoxaparin Sodium 40 mg DAILY SC 06/28/25 10:00 06/28/25 10:12 40 MG Acetaminophen 650 mg Q6HP PRN PO 06/27/25 19:30 06/28/25 21:57 650 MG Nitroglycerin 0.4 mg Q5MINP PRN SL 06/27/25 19:30 Morphine Sulfate 2 mg Q30M PRN IV 06/27/25 19:30 Pantoprazole Sodium 40 mg DAILY@0600 PO 06/29/25 06:00 Atorvastatin Calcium 80 mg HS PO 06/28/25 22:00 06/28/25 21:58 80 MG EZETIMIBE 10 mg DAILY PO 06/29/25 10:00 Laboratory Results Laboratory Tests 06/29/25 05:50 Chemistry Test 06/29/25 05:50 Calcium Level 9.3 mg/dL (8.7-10.4) Urinalysis Test 06/27/25 17:35 Urine Color Colorless (Yellow) Urine Clarity Clear (Clear) Urine pH 6.0 (5.0-9.0) Urine Specific [place] 1.009 (1.001-1.035) Urine Protein Negative (Negative) Urine Ketones Negative (Negative) Urine Blood Negative /uL (Negative) Urine Nitrite Negative (Negative) Urine Bilirubin Negative (Negative) Urine Urobilinogen Normal mg/dL (Negative) Urine Leukocyte Esterase Negative /uL (Negative) Urine RBC None seen /hpf (0 - 3) Urine Microscopic WBC < 1 /HPF (0-3) Urine Squamous Epithelial Cells None seen /hpf (<5) Urine Bacteria None seen /hpf (None Seen) Urine Glucose Normal mg/dL (Normal) Microbiology Microbiology Date/Time Source Procedure Growth Status 06/28/25 00:45 Nose MRSA Screen - Final Complete Labs and/or images reviewed: Labs reviewed by me, Image(s) reviewed by me Assessment/Plan Assessment/Plan Impression: -acute coronary syndrome -dyslipidemia -diabetes mellitus -primary hypertension Plan: -events: Patient chest pain free today. Plans for stress test today -regular insulin sliding scale -high-dose statin -echocardiogram: Results pending -check TSH, A1c -ACS protocol -further course of care per Cardiology recommendations -social service consultation for discharge planning Total time spent with patient discussing and formulating plan of care: 35 minutes. This medical document was created using an electronic medical record system with [employer] system. Although this document has been carefully reviewed, there may still be some phonetic and typographical errors. These areas are purely typographical due to imperfections of the software programs, and do not reflect any compromise in the patient's medical care. Plan discussed with: Patient, Other (RN) My Orders Orders - CLAUDETTE MILES NP Procedure Category Date Status Time Electrocardigram EKG 06/28/25 Logged 11:19 * Cardiology Consult CONS 06/28/25 Transmitted 11:19 Pantoprazole Tablet PHA 06/29/25 In Process (Protonix Tablet) 06:00 (Nf) Escitalopram PHA 06/29/25 Verified Oxalate 10:00 Date of Service: Jun 29, 2025 Billing Provider: CLAUDETTE MILES NP Common Visit Codes: [id number] INP/OBS CARE(HIGH) CLAUDETTE MILES NP Jun 29, 2025 09:44
--- NOTE | 2025-06-29 09:51 | DVHSR ---
APPROVED REPORT EXAM: Two-dimensional and M-mode echocardiogram with Doppler and color Doppler. Blood Pressure: 140/91 mmHg INDICATION Chest Pain RISK FACTORS Height: 6'0, Weight: 170 DIMENSIONS LVDd4.5 (3.8-5.7cm)LA (2D)4.0 (1.9-4.0cm)Aortic Root3.9 (2.0-3.7cm) LVDs3.0 (2.5-4.0cm)LA (MM) (1.9-4.0cm)Aortic Cusp Exc2.3 (1.5-2.0cm) EF (%) 60.0 (55-70%)Rt. Atrium (1.9-4.0cm)Asc. Aorta4.1 cm IVSd1.1 (0.7-1.1cm)RV (D)4.1 (1.8-2.4cm) PWd1.3 (0.7-1.1cm) Mitral Valve MitralMitral Stenosis E wave0.83m/sMV Mean GR.mmHg A wave0.86m/sMV Peak GR.67mmHg E/A ratio1.02D MVAcm2 DECEL [id number] 1/2 Timems Aortic Valve Aortic ValveAortic Stenosis V10.94m/Dayanna Mean GR.3mmHg V21.10m/Dayanna Peak GR.5mmHg LVOT Diameter2.5 (1.8-2.4cm)Doppler AVA4.19cm2 AI P 1/2 Ylpj480.51ms Pulmonic Valve V20.93m/s Tricuspid Valve TR Velocity2.08m/s [id number] Conclusion LV EF IS 65% SLIGHTLY DILATED RV AND RA NORMAL VALVES NORMAL RV FUNCTION NO EFFUSION
[2025-06-29] MEDS: REGADENOSON 0.4 MG/5 ML SYRG IV ONE ×2 (10:13→10:48)
--- NOTE | 2025-06-29 11:02 | ECG ---
[facility] Test Date: 2025-06-29 Test Time: 09:41:39 Pat Name: CHRIS LOPEZ Department: Room: 0278T A Gender: M Cook Relief: ELVIN : 1955 Requested By: CLAUDETTE MILES Order Number: [id number] Reading MD: Galen Street Measurements Intervals [place] Rate: 59 P: 53 NE: 203 QRS: -37 QRSD: 96 T: 37 QT: 439 QTc: 435 Interpretive Statements Sinus rhythm Left axis deviation Abnormal R-wave progression, late transition Electronically Signed On 07-02-2025 19:42:[address] Please click the below link to view image of tracing.
[2025-06-29] MEDS: EZETIMIBE 10 MG TAB PO SCH (12:24)
[2025-06-29] MEDS ORDERED: SERTRALINE HCL 200 MG PO SCH (22:00)
--- NOTE | 2025-06-29 23:21 | DVHPN2 ---
Progress Note - Dictate Date Seen: Jun 29, 2025 Medical Necessity Reason Pt with a Central, PICC or Fol: No Subjective Patient was seen and evaluated in follow up. Sitter is at bedside. Patient is receiving wound care. Echocardiogram showed an EF of 65%. Telemetry reviewed. vital signs Vital Sign Date Time Temp Pulse Resp B/P (MAP) Pulse Ox O2 Delivery O2 Flow Rate FiO2 06/29/25 12:26 61 149/82 06/29/25 08:00 Room Air* 0 21 06/29/25 04:55 98.0 19 96 98.0 Total Intake and Output 06/28/25 06/28/25 06/29/25 15:00 23:00 07:00 Intake Total 840 ml 1360 ml Balance 840 ml 1360 ml medications Current Medications Medications Dose Ordered Sig/Romario Route Start Time Stop Time Status Last Admin Dose Admin Aspirin 81 mg DAILY PO 06/28/25 10:00 06/29/25 12:25 81 MG Donepezil HCl 5 mg HS PO 06/27/25 22:00 06/28/25 21:57 5 MG Memantine 10 mg DAILY PO 06/28/25 10:00 06/29/25 12:24 10 MG Tamsulosin HCl 0.4 mg QPM PO 06/28/25 18:00 Losartan Potassium 50 mg DAILY PO 06/28/25 10:00 06/29/25 12:26 50 MG Metoprolol Succinate 25 mg DAILY PO 06/28/25 10:00 06/29/25 12:26 25 MG Diagnostic Test (Pha) 1 strip ACHS 06/27/25 22:00 06/29/25 12:21 1 STRIP Insulin Human Regular ACHS SC 06/27/25 22:00 Dextrose 50 ml UD PRN IV 06/27/25 19:30 Ondansetron HCl 4 mg Q4HP PRN IV 06/27/25 19:30 06/29/25 06:30 4 MG Enoxaparin Sodium 40 mg DAILY SC 06/28/25 10:00 06/29/25 12:24 40 MG Acetaminophen 650 mg Q6HP PRN PO 06/27/25 19:30 06/28/25 21:57 650 MG Nitroglycerin 0.4 mg Q5MINP PRN SL 06/27/25 19:30 Morphine Sulfate 2 mg Q30M PRN IV 06/27/25 19:30 Pantoprazole Sodium 40 mg DAILY@0600 PO 06/29/25 06:00 Atorvastatin Calcium 80 mg HS PO 06/28/25 22:00 06/28/25 21:58 80 MG EZETIMIBE 10 mg DAILY PO 06/29/25 10:00 06/29/25 12:24 10 MG Citalopram Hydrobromide 40 mg DAILY PO 06/30/25 10:00 Trazodone HCl 200 mg HS PRN PO 06/29/25 22:00 Quetiapine Fumarate 100 mg BID PO 06/29/25 10:00 06/29/25 12:24 100 MG objective GENERAL: Alert and oriented x 3. No acute distress. EYES: PERRL, EOMI. Anicteric. HENT: Moist mucous membranes. LUNGS: Clear to auscultation bilaterally. CARDIOVASCULAR: Regular rate and rhythm. ABDOMEN: Soft, non-tender and non-distended. EXTREMITIES: No edema. NEUROLOGIC: No focal neurological deficits. SKIN: Warm, dry. laboratory and microbiology Laboratory Tests 06/29/25 05:50 Test 06/29/25 05:50 Range/Units Serum Glucose 152 H 74-106 mg/dL Problem List Chest pain, rule out coronary ischemia. Hypertensive urgency. Rule out structural heart disease. Dyslipidemia severe triglyceridemia. Type 2 diabetes mellitus. Marijuana use. Dementia. Assessment/Plan Continued all current supportive medical care. Aspirin, Lipitor, Metoprolol. DVT and GI prophylactics. Losartan. Morphine for pain management. IV antibiotics as ordered. Additional plan as per the hospital course. Plan discussed with: Patient JABIER STOCK MD Jun 29, 2025 15:03
[2025-06-30 01:00] VITALS: BP 125/61; PULSE 60; RESP 18; TEMP 97.9; O2SAT 97
[2025-06-30 05:00] VITALS: BP 103/60; PULSE 55; RESP 17; TEMP 97; O2SAT 95
[2025-06-30 08:00] VITALS: PULSE 47
[2025-06-30 09:00] VITALS: BP 100/54; PULSE 59; RESP 18; TEMP 97.5; O2SAT 99
--- NOTE | 2025-06-30 10:25 | DVHPN2 ---
Subjective Denies any chest pain. Reviewed: Care Plan, H&P, Labs Changes from previous H/P or p: No Changes General: Per HPI Cardiovascular: Chest Pain Objective Vitals Vital Signs Date Time Temp Pulse Resp B/P (MAP) Pulse Ox O2 Delivery O2 Flow Rate FiO2 06/30/25 09:00 97.5 59 18 100/54 (69) 99 97.5 06/29/25 20:15 Room Air* 0 21 Intake/Output Intake and Output 06/30/25 07:00 Intake Total 650 ml Balance 650 ml Intake Oral 650 ml # Voids 7 # Bowel Movements 2 General Appearance: Alert, Oriented X3, Cooperative, No acute distress, mild distress HEENT: Atraumatic, PERRLA Lungs: Clear to auscultation, Normal air movement Cardiovascular: Normal S1, Normal S2 Abdomen: Normal bowel sounds, Soft, No tenderness, No hepatospenomegaly, No masses Genitourinary: No Apparent Abnormalities Musculoskeletal: Normal sensory function, Normal motor function Neuro: Normal gait, Normal speech Skin: Dry, Intact Psych/Mental Status: Mental status NL, Mood NL Medications Current Medications Medications Dose Ordered Sig/Romario Route Start Time Stop Time Status Last Admin Dose Admin Aspirin 81 mg DAILY PO 06/28/25 10:00 06/29/25 12:25 81 MG Donepezil HCl 5 mg HS PO 06/27/25 22:00 06/29/25 22:21 5 MG Memantine 10 mg DAILY PO 06/28/25 10:00 06/29/25 12:24 10 MG Tamsulosin HCl 0.4 mg QPM PO 06/28/25 18:00 06/29/25 17:16 0.4 MG Losartan Potassium 50 mg DAILY PO 06/28/25 10:00 06/29/25 12:26 50 MG Metoprolol Succinate 25 mg DAILY PO 06/28/25 10:00 06/29/25 12:26 25 MG Diagnostic Test (Pha) 1 strip ACHS 06/27/25 22:00 06/30/25 07:04 1 STRIP Insulin Human Regular ACHS SC 06/27/25 22:00 06/29/25 17:17 4 UNITS Dextrose 50 ml UD PRN IV 06/27/25 19:30 Ondansetron HCl 4 mg Q4HP PRN IV 06/27/25 19:30 06/29/25 06:30 4 MG Enoxaparin Sodium 40 mg DAILY SC 06/28/25 10:00 06/29/25 12:24 40 MG Acetaminophen 650 mg Q6HP PRN PO 06/27/25 19:30 06/28/25 21:57 650 MG Nitroglycerin 0.4 mg Q5MINP PRN SL 06/27/25 19:30 Morphine Sulfate 2 mg Q30M PRN IV 06/27/25 19:30 Pantoprazole Sodium 40 mg DAILY@0600 PO 06/29/25 06:00 06/30/25 05:43 40 MG Atorvastatin Calcium 80 mg HS PO 06/28/25 22:00 06/29/25 22:20 80 MG EZETIMIBE 10 mg DAILY PO 06/29/25 10:00 06/29/25 12:24 10 MG Citalopram Hydrobromide 40 mg DAILY PO 06/30/25 10:00 Trazodone HCl 200 mg HS PRN PO 06/29/25 22:00 06/29/25 23:04 200 MG Quetiapine Fumarate 100 mg BID PO 06/29/25 10:00 06/29/25 22:21 100 MG Laboratory Results Laboratory Tests 06/29/25 05:50 Urinalysis Test 06/27/25 17:35 Urine Color Colorless (Yellow) Urine Clarity Clear (Clear) Urine pH 6.0 (5.0-9.0) Urine Specific [place] 1.009 (1.001-1.035) Urine Protein Negative (Negative) Urine Ketones Negative (Negative) Urine Blood Negative /uL (Negative) Urine Nitrite Negative (Negative) Urine Bilirubin Negative (Negative) Urine Urobilinogen Normal mg/dL (Negative) Urine Leukocyte Esterase Negative /uL (Negative) Urine RBC None seen /hpf (0 - 3) Urine Microscopic WBC < 1 /HPF (0-3) Urine Squamous Epithelial Cells None seen /hpf (<5) Urine Bacteria None seen /hpf (None Seen) Urine Glucose Normal mg/dL (Normal) Microbiology Microbiology Date/Time Source Procedure Growth Status 06/28/25 00:45 Nose MRSA Screen - Final Complete Labs and/or images reviewed: Labs reviewed by me, Image(s) reviewed by me Assessment/Plan Assessment/Plan Impression: -acute coronary syndrome -dyslipidemia -diabetes mellitus -primary hypertension Plan: -events: Patient had negative stress test. Cleared by Cardiology. -regular insulin sliding scale -high-dose statin -echocardiogram within normal limits -continue p.o. medication -social service consultation for discharge to recuperative care Total time spent with patient discussing and formulating plan of care: 35 minutes. This medical document was created using an electronic medical record system with QPD dictation system. Although this document has been carefully reviewed, there may still be some phonetic and typographical errors. These areas are purely typographical due to imperfections of the software programs, and do not reflect any compromise in the patient's medical care. Plan discussed with: Patient, Other (RN) My Orders Orders - CLAUDETTE MILES NP Procedure Category Date Status Time * Eligibility Supervisor CONS 06/30/25 Transmitted Consult Date of Service: Jun 30, 2025 Billing Provider: CLAUDETTE MILES NP Common Visit Codes: [id number] INP/OBS CARE(HIGH) Secondary Visit Codes: [id number] CARE PLAN 30 MINUTES CLAUDETTE MILES NP Jun 30, 2025 10:25
[2025-06-30] MEDS: CITALOPRAM HYDROBR 20 MG TAB PO SCH (10:47)
[2025-06-30 13:00] VITALS: BP 110/66; PULSE 61; RESP 18; TEMP 97.7; O2SAT 98
--- NOTE | 2025-06-30 13:47 | DVHDS2 ---
Discharge Summary Date of Admission Jun 27, 2025 at 19:30 Date of Discharge: Jun 30, 2025 Admitting Diagnosis Unstable angina Labs/Diagnostic Data: Laboratory Results Test 06/30/25 11:03 06/29/25 05:50 06/28/25 08:10 06/27/25 17:35 POC Glucose 212 mg/dl (70-106) White Blood Count 10.5 10^3/uL (4.4-10.8) Red Blood Count 4.31 10^6/uL (4.5-5.90) Hemoglobin 13.1 g/dL (13.5-17.5) Hematocrit 37.0 % (41.0-53.0) Mean Corpuscular Volume 85.7 fL (80.0-100.0) Mean Corpuscular Hemoglobin 30.5 pg (28.0-32.0) Mean Corpuscular Hemoglobin Concent 35.6 g/dL (32.0-36.0) Red Cell Distribution Width 13.8 % (11.8-14.3) Platelet Count 299 10^3/uL (140-450) Mean Platelet Volume 8.6 fL (6.9-10.8) Neutrophils (%) (Auto) 74.8 % (37.0-80.0) Lymphocytes (%) (Auto) 14.5 % (10.0-50.0) Monocytes (%) (Auto) 6.5 % (0.0-12.0) Eosinophils (%) (Auto) 3.4 % (0.0-7.0) Basophils (%) (Auto) 0.8 % (0.0-2.0) Neutrophils # (Auto) 7.9 10 ^3/uL (1.6-8.6) Lymphocytes # (Auto) 1.5 10 ^3/uL (0.4-5.4) Monocytes # (Auto) 0.7 10 ^3/uL (0-1.3) Eosinophils # (Auto) 0.4 10 ^3/uL (0-0.8) Basophils # (Auto) 0.1 10 ^3/uL (0-0.2) Nucleated Red Blood Cells 0.0 % Sodium Level 134 mmol/L (136-145) Potassium Level 4.3 mmol/L (3.5-5.1) Chloride Level 101 mmol/L (98-107) Carbon Dioxide Level 22 mmol/L (20-31) Anion Gap 11 (5-15) Blood Urea Nitrogen 22 mg/dL (9-23) Creatinine 1.20 mg/dL (0.700-1.30) Glomerular Filtration Rate Calc 65 mL/min (>90) BUN/Creatinine Ratio 18.3 (10.0-20.0) Serum Glucose 152 mg/dL (74-106) Calcium Level 9.3 mg/dL (8.7-10.4) Hemoglobin A1c 6.3 % A1C (<5.7) Urine Color Colorless (Yellow) Urine Clarity Clear (Clear) Urine pH 6.0 (5.0-9.0) Urine Specific [place] 1.009 (1.001-1.035) Urine Protein Negative (Negative) Urine Ketones Negative (Negative) Urine Blood Negative /uL (Negative) Urine Nitrite Negative (Negative) Urine Bilirubin Negative (Negative) Urine Urobilinogen Normal mg/dL (Negative) Urine Leukocyte Esterase Negative /uL (Negative) Urine RBC None seen /hpf (0 - 3) Urine Microscopic WBC < 1 /HPF (0-3) Urine Squamous Epithelial Cells None seen /hpf (<5) Urine Bacteria None seen /hpf (None Seen) Urine Glucose Normal mg/dL (Normal) Urine Opiates Screen Neg (NEGATIVE) Urine Fentanyl Screen Neg (NEGATIVE) Urine Barbiturates Screen Neg (NEGATIVE) Urine Phencyclidine Screen Neg (NEGATIVE) Urine Amphetamines Screen Neg (NEGATIVE) Urine Benzodiazepines Screen Neg (NEGATIVE) Urine Cocaine Screen Neg (NEGATIVE) Urine Cannabinoids Screen Pos (NEGATIVE) Test 06/27/25 15:04 Troponin I High Sensitivity 6 ng/L (</=54) Triglycerides Level 500 mg/dL (< 150) Cholesterol Level 205 mg/dL (< 200) LDL Cholesterol mg/dL (< 100) HDL Cholesterol 50 mg/dL (40-59) Thyroid Stimulating Hormone (TSH) 1.63 uIU/mL (0.55-4.78) Plasma/Serum Blood Alcohol < 3.0 mg/dL (<10) Other Laboratory Tests 06/29/25 05:50 Brief Hx & Hospital Course: History of Present Illness 70-year-old male presents for evaluation of chest pain. Patient reports a one day history of left-sided sharp nonradiating chest pain with associated shortness for breath. No nausea or vomiting. No other acute complaints reported. Course of hospitalization: Patient's heart score was found to be a 5. Cardiology consultation was obtained. Patient had echocardiogram as well as nuclear stress test. Stress test negative for any ischemic changes. Patient was continued on ACS protocol for blood pressure control. Home antipsychotic medications were also restarted. Patient has been cleared for discharge and [facility] Patient was agreeable with discharge plan. All questions answered. Physical exam General: Alert and Oriented x3. No acute distress. Well-nourished. Eyes: EOMI. Anicteric. HENT: Moist mucous membranes. Lungs: Clear to auscultation bilaterally. No accessory muscle use. Cardiovascular: Regular rate and rhythm. No murmur. No JVD. Abdomen: Soft, non-tender and non-distended. No palpable masses. Extremities: No edema. Non-tender. Skin: No rashes or lesions. Warm. Neurologic: No focal neurological deficits. CN II-XII grossly intact, but not individually tested. Psychiatric: Cooperative. Appropriate mood and affect. Total time spent with patient discussing and formulating plan of care: 35 minutes. This medical document was created using an electronic medical record system with [employer] dictation system. Although this document has been carefully reviewed, there may still be some phonetic and typographical errors. These areas are purely typographical due to imperfections of the software programs, and do not reflect any compromise in the patient's medical care. Consults/Reason for consult Cardiology consultation for ACS Condition at Discharge: Fair Final Diagnosis/Problems List Chest pain, secondary to hypertension, GERD Secondary diagnosis: -acute coronary syndrome ruled out -dyslipidemia -diabetes mellitus -primary hypertension -schizophrenia Discharge Disposition: Home Discharge Instruct/Medications Diet: Consistent carbohydrate, Cardiac 2g Na,low cholest Activity: No Restrictions, As Tolerated Follow Up/Referral: Follow up with DC clinic in 1 week Medications: Continue all home medications. Scheduled Amlodipine Besylate (Norvasc Tablet), 10 MG PO DAILY, (Reported) Clonidine Hydrochloride (Clonidine Hcl), 0.1 MG PO BID, (Reported) Escitalopram Oxalate (Escitalopram Oxalate), 1 TAB PO DAILY, (Reported) Finasteride (Finasteride), 1 TAB PO DAILY, (Reported) Gemfibrozil (Lopid Tablet), 600 MG PO BID, (Reported) Losartan Potassium (Cozaar Tablet), 50 MG PO BID, (Reported) Metoprolol Tartrate (Metoprolol Tartrate), 100 MG PO DAILY, (Reported) Naproxen (Naproxen), 500 MG PO BID, (Reported) Quetiapine Fumerate (Quetiapine Fumarate), 100 MG PO HS, (Reported) Sertraline Hcl (Sertraline Hcl), 200 MG PO HS, (Reported) Scheduled PRN Trazodone Hcl (Trazodone Hcl), 2 TAB PO QHSP PRN, (Reported) Miscellaneous Medications Quetiapine Fumerate (Quetiapine Fumarate), 1 TAB PO, (Reported) Tamsulosin Hcl (Tamsulosin Hcl), CAP PO, (Reported) 36 Discharge Statement: "Patient was advised to return to the ER or call 911 if any headaches, dizziness, shortness of breath, chest pain, abdominal pain, bleeding, fevers, or worsening of medical condition. Patient was counseled about treatment plan, medications, possible side effects, patientverbalized understanding. All questions were answered to the best of my ability. This discharge took greater then 30 minutes in planning, reviewing documentation, counseling the patient, and discussing with other team members." ASSESSMENT ASSESSMENT Assessment Chest pain Date of Service: Jun 30, 2025 Billing Provider: CLAUDETTE MILES NP Common Visit Codes: [id number] DISCH DAY >30min CLAUDETTE MILES NP Jun 30, 2025 13:47
--- NOTE | 2025-06-30 23:56 | DVHPN2 ---
Progress Note - Dictate Date Seen: Jun 30, 2025 Medical Necessity Reason Pt with a Central, PICC or Fol: No Subjective Patient was seen and evaluated in follow up. Patient has no new complaints at this time. Patient denies any cardiac symptoms. Patient is cardiac stable for discharge. Telemetry reviewed. vital signs Vital Sign Date Time Temp Pulse Resp B/P (MAP) Pulse Ox O2 Delivery O2 Flow Rate FiO2 06/30/25 13:00 97.7 61 18 110/66 (81) 98 97.7 06/30/25 08:00 Room Air* 0 21 Total Intake and Output 06/29/25 06/29/25 06/30/25 15:00 23:00 07:00 Intake Total 350 ml 300 ml Balance 350 ml 300 ml medications Current Medications Medications Dose Ordered Sig/Romario Route Start Time Stop Time Status Last Admin Dose Admin Aspirin 81 mg DAILY PO 06/28/25 10:00 06/30/25 10:47 81 MG Donepezil HCl 5 mg HS PO 06/27/25 22:00 06/29/25 22:21 5 MG Memantine 10 mg DAILY PO 06/28/25 10:00 06/30/25 10:48 10 MG Tamsulosin HCl 0.4 mg QPM PO 06/28/25 18:00 06/29/25 17:16 0.4 MG Losartan Potassium 50 mg DAILY PO 06/28/25 10:00 06/30/25 10:48 50 MG Metoprolol Succinate 25 mg DAILY PO 06/28/25 10:00 06/30/25 10:49 25 MG Diagnostic Test (Pha) 1 strip ACHS 06/27/25 22:00 06/30/25 11:18 1 STRIP Insulin Human Regular ACHS SC 06/27/25 22:00 06/30/25 11:17 4 UNITS Dextrose 50 ml UD PRN IV 06/27/25 19:30 Ondansetron HCl 4 mg Q4HP PRN IV 06/27/25 19:30 06/29/25 06:30 4 MG Enoxaparin Sodium 40 mg DAILY SC 06/28/25 10:00 06/30/25 10:47 40 MG Acetaminophen 650 mg Q6HP PRN PO 06/27/25 19:30 06/28/25 21:57 650 MG Nitroglycerin 0.4 mg Q5MINP PRN SL 06/27/25 19:30 Morphine Sulfate 2 mg Q30M PRN IV 06/27/25 19:30 Pantoprazole Sodium 40 mg DAILY@0600 PO 06/29/25 06:00 06/30/25 05:43 40 MG Atorvastatin Calcium 80 mg HS PO 06/28/25 22:00 06/29/25 22:20 80 MG EZETIMIBE 10 mg DAILY PO 06/29/25 10:00 06/30/25 10:48 10 MG Citalopram Hydrobromide 40 mg DAILY PO 06/30/25 10:00 06/30/25 10:47 40 MG Trazodone HCl 200 mg HS PRN PO 06/29/25 22:00 06/29/25 23:04 200 MG Quetiapine Fumarate 100 mg BID PO 06/29/25 10:00 06/30/25 10:48 100 MG objective GENERAL: Alert and oriented x 3. No acute distress. EYES: PERRL, EOMI. Anicteric. HENT: Moist mucous membranes. LUNGS: Clear to auscultation bilaterally. CARDIOVASCULAR: Regular rate and rhythm. ABDOMEN: Soft, non-tender and non-distended. EXTREMITIES: No edema. NEUROLOGIC: No focal neurological deficits. SKIN: Warm, dry. laboratory and microbiology Laboratory Tests 06/29/25 05:50 Test 06/29/25 05:50 Range/Units Serum Glucose 152 H 74-106 mg/dL Problem List Chest pain, rule out coronary ischemia. Hypertensive urgency. Rule out structural heart disease. Dyslipidemia severe triglyceridemia. Type 2 diabetes mellitus. Marijuana use. Dementia. Assessment/Plan Continued all current supportive medical care. Aspirin, Metoprolol. DVT and GI prophylactics. Losartan. Morphine for pain management. IV antibiotics as ordered. Additional plan as per the hospital course. Plan discussed with: Patient JABIER STOCK MD Jun 30, 2025 15:27
--- NOTE | 2025-07-04 08:52 | DVHSR ---
APPROVED REPORT Exam: Nuclear Stress Test Indication: Chest pain BMI: 0 Stress Test Details Stress Test: Pharmacologic stress testing performed using 0.4 mg of regadenoson per 5 mL given IV ov er 10 seconds. HR Resting HR: 61 bpmMax Heart Rate (APMHR): 150.962142 bpm Max HR Achieved: 86 bpmTarget HR (85% APMHR): 127.857078 bpm % of APMHR: 57.33 Recovery HR: 77 bpm BP Resting BP: 150/78 mmHg Recovery BP: 145/70 mmHg ECG Resting ECG: Sinus Rhythm Clinical Reason for Termination: Completed protocol Nurse Comments Recieved pt. from [facility]. A/Ox4 on RA. Connected to steel crane operator, VS stable. Rt IV flushes well. Reviewed POC. Pt. verbalized understanding of procedure including risks and side effects, agrees for stress testing. Lexiscan stress test performed per protocol. [facility] tech administered Cardiolite. Pt. tolerated well . Pt. stable, no change on exam. VS returned to baseline. Transferred to [facility] via wheelchair w/ te ch. Stress ECG Conclusion lvef 74% normal perfusion scan NM EXAM: Myocardial Perfusion REST/STRESS Imaging Protocol: Rest Tc-99m/Stress Tc-99m 1 day Resting Data Rest SPECT myocardial perfusion imaging was performed in supine position 60 minutes following the int ravenous injection of 10.3 mCi of Tc-99m Sestamibi. Time of rest injection: 0732 Time of rest imagin Administration Route: IV Administration Site: Left AC Pharmacologic Stress Pharmacologic stress test was performed by injecting Regadenoson 0.4 mg IV push followed by the intra venous injection of 30.9 mCi of Tc-99m Sestamibi. Time of stress injection: 0900 Time of stress imagin Administration Route: IV Administration Site: Left AC Gated Stress SPECT was performed 75 minutes after stress injection. The images were gated to evaluate regional wall motion and calculate left ventricular ejection fracti on. Nuclear Conclusion Nuclear Findings: negative for ischemia lvef 74% normal perfusion scan
== END 2025-06-30 15:05 | disposition home or self-care (01) | DRG 392 ==
LOC: ER 13:58 → OVERFLOW 19:30 → TELE-WESTW 23:11
PROVIDERS: ADMIT Nurse Practitioner Acute Care; ATTEND Nurse Practitioner Acute Care
DX: K21.9 Gastro-esophageal reflux disease without esophagitis (principal); E11.9 Type 2 diabetes mellitus without complications; E78.1 Pure hyperglyceridemia; I16.0 Hypertensive urgency; F03.90 Unspecified dementia, unspecified severity, without behavioral disturbance, psychotic disturbance, mood disturbance, and anxiety; F12.90 Cannabis use, unspecified, uncomplicated; F17.210 Nicotine dependence, cigarettes, uncomplicated; I51.3 Intracardiac thrombosis, not elsewhere classified; I48.91 Unspecified atrial fibrillation; I11.0 Hypertensive heart disease with heart failure; I50.9 Heart failure, unspecified; F20.9 Schizophrenia, unspecified; Z82.49 Family history of ischemic heart disease and other diseases of the circulatory system; I25.2 Old myocardial infarction; Z88.8 Allergy status to other drugs, medicaments and biological substances; Z90.49 Acquired absence of other specified parts of digestive tract; Z88.0 Allergy status to penicillin; Z88.5 Allergy status to narcotic agent; Z83.3 Family history of diabetes mellitus; Z79.899 Other long term (current) drug therapy
CPT/HCPCS: 36415; 71046; 78452; 80048; 80061; 80307; 80320; 81001; 82962; 83036; 84443; 84484; 85025; 87081; 93005; 93017; 93306; 96374; 96375; 99291; G0378; J1815; J2405